=== PATIENT | female | born 1960 | race Caucasian/White ===

== ENCOUNTER → 2019-10-07 10:57 | Outpatient (CLI) | payer OTHER, SELFPAY ==
--- NOTE | ~2019-10-07 | MM_ITS ---
EXAMINATION: MM screening sarah BI w chris HISTORY: Screening mammogram TECHNIQUE: Craniocaudal and mediolateral oblique 3-D tomosynthesis images were obtained and synthetic 2-D images were generated. CAD analysis was submitted and interpreted. COMPARISON: 06/26/2017 bilateral diagnostic digital mammogram 06/12/2017 bilateral digital screening mammogram BREAST PARENCHYMAL COMPOSITION: There are scattered areas of fibroglandular density. FINDINGS: Stable benign-appearing intramammary lymph nodes, more numerous on the right. There is no e vidence of suspicious mass, calcification, or architectural distortion to suggest malignancy in eithe r breast. There has been no suspicious interval change. IMPRESSION: 1. No mammographic evidence of malignancy. 2. Recommend routine screening mammography in one year. BI-RADS Category 2: Benign finding(s). Reviewed, dictated and finalized at location A. 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
== END ==
PROVIDERS: PCP Family Medicine; Visit Provider Family Medicine
DX: Z12.31 Encounter for screening mammogram for malignant neoplasm of breast (principal)
CPT/HCPCS: 77063; 77067

== ENCOUNTER 2020-12-14 10:43 | Outpatient (CLI) | payer OTHER, SELFPAY ==
--- NOTE | ~2020-12-14 | XR_ITS ---
XR ankle LT 2V DATE: 12/14/2020 10:59 INDICATION: Left ankle and foot pain TECHNIQUE: AP and lateral views of left ankle COMPARISON: None FINDINGS: No fracture or dislocation of the ankle or disruption of the ankle mortise. Prominent plantar calcaneal enthesopathy. Osteoarthritic changes at the tarsal and tarsometatarsal joints. IMPRESSION: Plantar calcaneal enthesopathy Osteoarthritis at the tarsal and tarsometatarsal joints Reviewed, dictated and finalized at location A.
--- NOTE | ~2020-12-14 | XR_ITS ---
XR foot LT 2V DATE: 12/14/2020 10:59 INDICATION: Left foot pain across the metatarsal region TECHNIQUE: AP and lateral views COMPARISON: None FINDINGS: Prominent plantar calcaneal enthesopathy. Osteoarthritic changes at the tarsal and tarsometatarsal joints. Hallux valgus and bunion deformity. Osteoarthritis at the first metatarsophalangeal joint. IMPRESSION: Plantar calcaneal enthesopathy Polyarticular osteoarthritis Hallux valgus and bunion deformity Reviewed, dictated and finalized at location A.
== END 2020-12-14 10:44 | disposition home or self-care (01) ==
PROVIDERS: PCP Family Medicine; Visit Provider Physician Assistant
DX: M79.89 Other specified soft tissue disorders (principal); M25.472 Effusion, left ankle; M19.072 Primary osteoarthritis, left ankle and foot; M77.32 Calcaneal spur, left foot; M20.12 Hallux valgus (acquired), left foot
CPT/HCPCS: 73600; 73620

== ENCOUNTER 2021-02-01 16:09 | Outpatient (CLI) | payer OTHER, SELFPAY ==
--- NOTE | ~2021-02-01 | MM_ITS ---
EXAMINATION: MM screening [facility] BI w chris HISTORY: Screening TECHNIQUE: Craniocaudal and mediolateral oblique 3-D tomosynthesis images were obtained and synthetic 2-D images were generated. CAD analysis was submitted and interpreted. COMPARISON: Comparison to multiple prior studies sequentially, with oldest reviewed study dated 03/2017. BREAST PARENCHYMAL COMPOSITION: There are scattered areas of fibroglandular density. FINDINGS: There is no evidence of suspicious mass, calcification, or architectural distortion to sugg est malignancy in either breast. There has been no suspicious interval change. IMPRESSION: 1. No mammographic evidence of malignancy. 2. Recommend routine screening mammography in one year. BI-RADS Category 1: Negative Reviewed, dictated and finalized at location A.
== END 2021-02-01 16:10 | disposition home or self-care (01) ==
LOC: ANHIMG 16:10
PROVIDERS: PCP Family Medicine; Visit Provider Physician Assistant
DX: Z12.31 Encounter for screening mammogram for malignant neoplasm of breast (principal)
CPT/HCPCS: 77063; 77067

== ENCOUNTER → 2022-02-06 10:32 | Outpatient (CLI) | payer OTHER, SELFPAY ==
--- NOTE | ~2022-02-06 | MM_ITS ---
EXAMINATION: MM screening sarah BI w chris HISTORY: Screening TECHNIQUE: Craniocaudal and mediolateral oblique 3-D tomosynthesis images were obtained and synthetic 2-D images were generated. CAD analysis was submitted and interpreted. COMPARISON: Comparison to multiple prior studies sequentially, with oldest reviewed study dated 03/2017. BREAST PARENCHYMAL COMPOSITION: Breast composed of scattered areas of fibroglandular density. FINDINGS: Developing focal asymmetry in the upper outer quadrant of the right breast, best seen on ML O view. The left breast is stable without evidence for malignancy. IMPRESSION: 1. Developing right breast asymmetry. 2. Additional mammographic views and possible breast ultrasound are recommended. BI-RADS Category 0: Incomplete: Needs additional imaging evaluation. Reviewed, dictated and finalized at location A. IMPRESSION: 1. Developing right breast asymmetry. 2. Additional mammographic views and possible breast ultrasound are recommended . BI-RADS Category 0: Incomplete: Needs additional imaging evaluation.
== END ==
PROVIDERS: PCP Family Medicine; Visit Provider Family Medicine
DX: Z12.31 Encounter for screening mammogram for malignant neoplasm of breast (principal); R92.8 Other abnormal and inconclusive findings on diagnostic imaging of breast
CPT/HCPCS: 77063; 77067

== ENCOUNTER → 2022-02-21 08:06 | Outpatient (CLI) | payer OTHER, SELFPAY ==
--- NOTE | ~2022-02-21 | MMUS_ITS ---
EXAMINATION: MM diagnostic sarah RT w chris, US breast RT limited HISTORY: Follow-up right breast asymmetry TECHNIQUE: Additional 3-D tomosynthesis images of the right breast were performed and synthetic 2-D i mages were generated. CAD analysis was submitted and interpreted. High resolution Limited right breas t ultrasound was performed. COMPARISON: 02/06/2022 BREAST PARENCHYMAL COMPOSITION: Breast composed of scattered areas of fibroglandular density FINDINGS: MAMMOGRAPHIC FINDINGS: Persistent focal asymmetry in the mid outer aspect of the right breast. No suspicious calcifications or architectural distortion. ULTRASOUND: Limited right breast ultrasound: At 11:00, 7 cm from the nipple there is an oval hypoechoic 6 mm mass with low level internal echoes, no internal vascularity and no posterior features. At 10:00, 9 cm fr om the nipple, there is an oval circumscribed hypoechoic mass with parallel orientation, no significa nt posterior shadowing and no internal vascularity measuring 5 mm. IMPRESSION: 1. Probable benign right breast masses. 2. Recommend 6 month follow-up diagnostic right mammogram and ultrasound. BI-RADS category 3, probably benign findings. Reviewed, dictated and finalized at location L. IMPRESSION: 1. Probable benign right breast masses. 2. Recommend 6 month follow-up diagnostic right mammogram and ultrasound. BI-RADS category 3, probably benign findings.
== END ==
PROVIDERS: PCP Family Medicine; Visit Provider Family Medicine
DX: R92.8 Other abnormal and inconclusive findings on diagnostic imaging of breast (principal)
CPT/HCPCS: 76642; 77061; 77065; G0279

== ENCOUNTER 2022-08-31 19:13 | Emergency (ER) | payer OTHER, SELFPAY ==
--- NOTE | 2022-08-31 19:16 | ED.EXTPRO ---
HPI - Extremity Problem General Chief complaint: Extremity Problem,Nontraumatic Stated complaint: Pain and Bruising Lt Lower Leg Time Seen by Provider: 08/31/22 19:15 Source: patient Mode of arrival: ambulatory Limitations: no limitations History of Present Illness HPI Narrative: Frannie is a 62-year-old female patient presenting to the clinic today with complaints left lower leg bruising/swelling x 8 days. She reports she hit her fox on the corner of the car door. She is currently taking Brilinta and aspirin. States today she noticed some redness to her left lower leg and pain inferior of the bruising. She denies any fever, chills, chest pain, shortness of breath, headache, mental status changes, dizziness, or unsteady gait. Related Data Home Medications Medication Instructions Recorded Confirmed aspirin 81 mg tablet,delayed 81 mg PO DAILY 10/06/19 01/23/21 release (Aspir-) metoprolol succinate 50 mg 50 mg PO DAILY 10/06/19 01/23/21 tablet,extended release 24 hr ticagrelor 60 mg tablet (Brilinta) 60 mg PO Q12H 10/06/19 01/23/21 omega-3 fatty acids 1,000 mg 1,000 mg PO BID 10/03/20 01/23/21 capsule (Fish Oil Concentrate) diclofenac sodium 1 % topical gel 2 g topical QID 01/23/21 01/23/21 (Voltaren Arthritis Pain) Allergies Allergy/AdvReac Type Severity Reaction Status Date / Time No Known Allergies Allergy Verified 08/31/22 19:17 Review of Systems Review of Systems: Pertinent positives per HPI. Patient denies any fever, chills, rash, headache, visual changes, dizziness, cough, runny nose, sore throat, shortness of breath, chest pain, palpitations, nausea, vomiting, diarrhea, constipation, abdominal pain, or any urinary issues. [facility] Past Medical History Medical History Benign essential HTN CAD (coronary artery disease) CHF (congestive heart failure) GERD (gastroesophageal reflux disease) Hx of myocardial infarction Mixed hyperlipidemia Obesity DORY (obstructive sleep apnea) Family History Family History Mother Hypertension Family history of cardiovascular disease Cerebrovascular accident Father Malignant neoplasm of prostate Social History Social History Social History: Second hand tobacco smoke exposure: No Alcohol intake: never Substance use: never Substance use type: does not use Living arrangements: with family Occupation/Education: retired Gender identity (if verbalized by the patient): Female Comments At the time of my signature, I reviewed and agree with the nursing past medical, surgical, social, and family history. There is no relevant family history pertinent to the patient complaint. Exam Narrative: General: Well-developed, obese, in no apparent distress Head: Normocephalic, atraumatic. Cardio: Regular rate and rhythm, s1 and s2 normal, no murmur appreciated. Resp: Clear to auscultation bilaterally, no rhonchi, rales, wheezing or rubs. Musculoskeletal: No deformity, bruising noted to the left lower anterior fox, 4 x 3 cm hematoma palpable superficially to left anterior fox with surrounding ecchymosis 7 x 6 cm, localized tenderness to palpation just inferior/lateral from the hematoma, grossly normal range of motion, muscle strength strong and equal, peripheral pulse strong, 1+ edema bilaterally to lower extremities, lower extremity temperature is equal bilaterally, no cyanosis, normal gait and station Course Course Emergency Course: Portions of this record may have been created with voice recognition software. Level of Care: Express Care Visit Vital Signs Vital signs: Vital signs reviewed MDM - Extremity (Nontraumatic) MDM Narrative Medical decision making narrative: At the time of visit patient is resting comfortably on the exam table. I suspect the patient
[2022-08-31 19:23] VITALS: BP 125/56; PULSE 71; RESP 18; TEMP 36.2; O2SAT 99
== END 2022-08-31 19:38 | disposition home or self-care (01) ==
PROVIDERS: Emergency Provider Nurse Practitioner Family; PCP Family Medicine
DX: S80.12XA Contusion of left lower leg, initial encounter (principal); W22.8XXA Striking against or struck by other objects, initial encounter; I11.0 Hypertensive heart disease with heart failure; I50.9 Heart failure, unspecified; I25.10 Atherosclerotic heart disease of native coronary artery without angina pectoris; K21.9 Gastro-esophageal reflux disease without esophagitis; I25.2 Old myocardial infarction; E78.2 Mixed hyperlipidemia; E66.9 Obesity, unspecified; Z68.42 Body mass index [BMI] 45.0-49.9, adult; Z79.82 Long term (current) use of aspirin
CPT/HCPCS: 99212; G0463

== ENCOUNTER 2022-10-15 08:31 | Outpatient (CLI) | payer OTHER, SELFPAY ==
--- NOTE | ~2022-10-15 | MMUS_ITS ---
EXAMINATION: MM diagnostic sarah RT w chris, US breast RT limited HISTORY: Six-month follow-up of probable benign right breast masses at 11:00 7 cm from nipple and 10: 00 9 cm from nipple TECHNIQUE: ML, MLO and CC 3-D tomosynthesis images of the right breast were performed and synthetic 2 -D images were generated. CAD analysis was submitted and interpreted. High resolution upper outer galileo drant and lower outer quadrant right breast ultrasound was performed. COMPARISON: 02/21/2022 diagnostic right mammogram and limited right breast ultrasound 02/06/2022 bilateral screening mammogram BREAST PARENCHYMAL COMPOSITION: There are scattered areas of fibroglandular density. FINDINGS: MAMMOGRAPHIC FINDINGS: Stable benign-appearing axillary tail lymph nodes are noted. Circumscribed 4.9 mm low-density opacity is noted in the upper outer right breast (MLO Tomosynthesis image 22/82). No suspicious mass or architectural distortion, malignant calcification, skin thickening or retractio n of the right breast is detected. ULTRASOUND: 11:00 7 cm from nipple: Reniform 6.5 x 8.9 x 6 mm circumscribed hypoechoic lesion with fatty hilus wi th vascularity, likely a benign intramammary lymph node. 11:00 5 cm from nipple: Approximately 2 x 3 mm circumscribed hypoechoic area without suspicious shado wing 10:00 9 cm from nipple: 4.2 x 3.7 mm circular sonolucency with through transmission, consistent with small cyst IMPRESSION: 1. Probably benign findings 2. 6 month follow-up diagnostic right mammogram and right breast ultrasound with routine 12 month scr eening interval left mammogram views is recommended. BI-RADS category 3, probably benign findings. Reviewed, dictated and finalized at location A. IMPRESSION: 1. Probably benign findings 2. 6 month follow-up diagnostic right mammogram and right breast ultrasound wit h routine 12 month screening interval left mammogram views is recommended. BI-RADS category 3, probably benign findings.
== END 2022-10-15 08:32 ==
LOC: MICIMG 08:32
PROVIDERS: PCP Family Medicine; Visit Provider Family Medicine
DX: R92.8 Other abnormal and inconclusive findings on diagnostic imaging of breast (principal)
CPT/HCPCS: 76642; 77061; 77065; G0279

== ENCOUNTER 2022-11-26 00:40 | Day surgery (SDC) | payer OTHER, SELFPAY ==
[2022-11-16 14:57] VITALS: BMI 44.3
--- NOTE | 2022-11-21 11:16 | PC.NURSE ---
pt is scheduled for colonoscopy on november 26, 2022. she is currently taking brilinta, dr gage cleared pt for procedure but only wants pt to hold her brilinta for 2 days prior instead of 3. spoke with dr barnett and he is agreeable to this. called pt and instructed her to hold for 2 days prior, last dose will be november 23, continue aspirin. pt voiced understanding.
--- NOTE | 2022-11-26 08:22 | WPDANESEPPF ---
Anes - Initial Pre Proc Eval Procedure: Operation Date: 11/26/22 13:30 Proposed Procedures p Colonoscopy - Jose Guillen MD Date/Time: 11/26/22 08:22 Surgeon: Jose Guillen MD Pre Op Diagnosis: Other fecal abnormalities Patient Data Age: 62 Gender: F Height: 1.6 m Weight: 113.5 kg Allergies Allergy/AdvReac Type Severity Reaction Status Date / Time No Known Allergies Allergy Verified 11/26/22 12:04 Home Medications Medication Instructions Recorded Confirmed Type aspirin 81 mg tablet,delayed 81 mg PO DAILY 10/06/19 11/16/22 History release (Aspir-) metoprolol succinate 50 mg 50 mg PO DAILY 10/06/19 11/26/22 History tablet,extended release 24 hr ticagrelor 60 mg tablet (Brilinta) 60 mg PO Q12H 10/06/19 11/16/22 History allopurinol 100 mg tablet 100 mg PO DAILY #90 tabs 04/20/21 11/16/22 Rx lisinopril 20 mg tablet 20 mg PO DAILY 11/16/22 11/16/22 History nystatin 100,000 unit/gram topical 1 applic topical BID PRN Rash 11/16/22 11/16/22 History cream omega 5-dnm-bqo-fish oil 1,200 mg 1,200 cap PO BID 11/16/22 11/16/22 History (144 mg-216 mg) capsule (Fish Oil) rosuvastatin 20 mg tablet 20 mg PO DAILY 11/16/22 11/16/22 History triamcinolone acetonide 0.1 % 1 applic topical BID PRN Rash 11/16/22 11/16/22 History topical cream Patient hx anesthesia problems: none Family hx anesthesia problems: none Results Review: All pre-operative results and documents have been reviewed as part of the pre-operative evaluation. [facility], [facility] Past Medical History Medical History (Updated 11/26/22 @ 08:23 by Kerwin Cervantes DO) Benign essential HTN CAD (coronary artery disease) CHF (congestive heart failure) GERD (gastroesophageal reflux disease) Hx of myocardial infarction Mixed hyperlipidemia Obesity DORY (obstructive sleep apnea) CPAP Family History Family History Mother Hypertension Family history of cardiovascular disease Cerebrovascular accident Father Malignant neoplasm of prostate Social History Social History Social History: Smoking status: Never smoker Second hand tobacco smoke exposure: No Alcohol intake: never Substance use: never Substance use type: does not use Living arrangements: with family Occupation/Education: retired Gender identity (if verbalized by the patient): Female Spiritual care concerns: No Anes - Eval Final PreProcedure Day of Procedure 11/26/22 08:22 Patient weight: morbidly obese Heart: regular rate and rhythm Lungs: clear to auscultation Airway: Mallampati scale class II Neurological: alert and oriented Last oral intake: >/= 8 hours ASA classification: III Emergent: no Anesthetic plan: proceed Anesthesia type and monitoring: general GIVS and standard monitoring Results Review: All pre-operative results and documents have been reviewed as part of the pre-operative evaluation. Informed Consent: The patient's anesthetic plan and its attendant risks and benefits were discussed with the patient/family/POA. Questions were solicited and answers provided to the satisfaction of the patient/family/POA.
[2022-11-26 12:05] VITALS: BP 121/64; PULSE 68; RESP 20; TEMP 35.8; O2SAT 98
[2022-11-26] MEDS: LACTATED RINGERS 1,000 ML 150 ML IV CONT (12:16)
--- NOTE | 2022-11-26 12:43 | PM.HPGS ---
History of Present Illness History of Present Illness Consent: Risks, benefits, and alternatives have been discussed and questions answered. Patient agrees to proceed with procedure. Chief complaint: Other fecal abnormalities Narrative: Frannie Hennessy is a 62 year old female here for first colonoscopy, had cologuard + Review of Systems Constitutional: Constitutional: Denies headache(s) and Denies weakness Eyes: Eyes: Denies blurry vision ENT: Reports Normal hearing present, Denies headache(s) and Denies neck pain Cardiovascular: Cardiovascular: Denies chest pain and Denies dyspnea Respiratory: Respiratory: Denies dyspnea Gastrointestinal: Gastrointestinal: Reports no additional gastrointestinal complaints Genitourinary: Genitourinary: Denies dysuria Musculoskeletal: Musculoskeletal: Denies neck pain Integumentary/Breasts: Skin/Breast: Denies dry skin Neurologic: Reports Normal hearing present, Denies headache(s) and Denies weakness Psychiatric: Psychiatric: Denies anxiety Endocrine: Endocrine: Denies change in body appearance Hematologic/Lymphatic: Hematologic/Lymphatic: Denies easy bleeding Allergic/Immunologic: Allergic/Immunologic: Denies urticaria PMFSH Past Medical History Medical History (Updated 11/26/22 @ 12:43 by Jose Guillen MD) Benign essential HTN CAD (coronary artery disease) CHF (congestive heart failure) GERD (gastroesophageal reflux disease) Hx of myocardial infarction Mixed hyperlipidemia Obesity DORY (obstructive sleep apnea) CPAP Positive colorectal cancer screening using Cologuard test Family History Family History Mother Hypertension Family history of cardiovascular disease Cerebrovascular accident Father Malignant neoplasm of prostate Social History Social History Social History: Smoking status: Never smoker Second hand tobacco smoke exposure: No Alcohol intake: never Substance use: never Substance use type: does not use Living arrangements: with family Occupation/Education: retired Gender identity (if verbalized by the patient): Female Spiritual care concerns: No Meds Home Medications and Allergies Home Medications Medication Instructions Recorded Confirmed Type aspirin 81 mg tablet,delayed 81 mg PO DAILY 10/06/19 11/16/22 History release (Aspir-) metoprolol succinate 50 mg 50 mg PO DAILY 10/06/19 11/26/22 History tablet,extended release 24 hr ticagrelor 60 mg tablet (Brilinta) 60 mg PO Q12H 10/06/19 11/16/22 History allopurinol 100 mg tablet 100 mg PO DAILY #90 tabs 04/20/21 11/16/22 Rx lisinopril 20 mg tablet 20 mg PO DAILY 11/16/22 11/16/22 History nystatin 100,000 unit/gram topical 1 applic topical BID PRN Rash 11/16/22 11/16/22 History cream omega 5-qcs-mey-fish oil 1,200 mg 1,200 cap PO BID 11/16/22 11/16/22 History (144 mg-216 mg) capsule (Fish Oil) rosuvastatin 20 mg tablet 20 mg PO DAILY 11/16/22 11/16/22 History triamcinolone acetonide 0.1 % 1 applic topical BID PRN Rash 11/16/22 11/16/22 History topical cream Allergies Allergy/AdvReac Type Severity Reaction Status Date / Time No Known Allergies Allergy Verified 11/26/22 12:04 Vital Signs Vital Signs - 24 hr 11/26/22 12:05 Temperature 96.5 F L Pulse Rate 68 Respiratory Rate 20 Blood Pressure 121/64 Pulse Oximetry 98 Oxygen Delivery Room Air Exam Const: General: comfortable and no acute distress HENMT: Face/Nose/Sinus: Normal nares present Eyes: General: appearance normal, both eyes and all related structures Neck: Neck: no JVD Resp: Auscultation: clear to auscultation bilaterally Cardio: Rate: regular rate Rhythm: regular rhythm GI: Inspection: non-distended GI Palp: Yes Soft to palpation Skin: General skin exam: normal color Neuro: General: gait normal Speech: bro
[2022-11-26 13:10] VITALS: BP 84/57; PULSE 73; RESP 16; O2SAT 97
[2022-11-26 13:20] VITALS: BP 96/63; PULSE 65; RESP 18; O2SAT 98
[2022-11-26 13:30] VITALS: BP 96/65; PULSE 62; RESP 17; O2SAT 98
== END 2022-11-26 13:45 | disposition home or self-care (01) ==
PROVIDERS: PCP Family Medicine; Visit Provider Internal Medicine Gastroenterology
PROC: 0DJD8ZZ Inspection of Lower Intestinal Tract, Via Natural or Artificial Opening Endoscopic (ICD-10-PCS; CPT 45378; principal; 2022-11-26 13:30)
DX: R19.7 Diarrhea, unspecified (principal); D12.0 Benign neoplasm of cecum; D12.2 Benign neoplasm of ascending colon; D12.3 Benign neoplasm of transverse colon; K57.30 Diverticulosis of large intestine without perforation or abscess without bleeding; K64.8 Other hemorrhoids; I11.0 Hypertensive heart disease with heart failure; I50.9 Heart failure, unspecified; I25.10 Atherosclerotic heart disease of native coronary artery without angina pectoris; I25.2 Old myocardial infarction; E78.2 Mixed hyperlipidemia; K21.9 Gastro-esophageal reflux disease without esophagitis; G47.33 Obstructive sleep apnea (adult) (pediatric); E66.01 Morbid (severe) obesity due to excess calories; Z68.41 Body mass index [BMI] 40.0-44.9, adult; Z79.82 Long term (current) use of aspirin; Z79.01 Long term (current) use of anticoagulants
CPT/HCPCS: 45380; 45385; 88305; J2704; J7120

== ENCOUNTER → 2023-06-12 08:43 | Outpatient (CLI) | payer MEDICARE, OTHER, SELFPAY ==
--- NOTE | ~2023-06-12 | MMUS_ITS ---
EXAMINATION: MM diagnostic [facility] BI w chris, US breast RT limited HISTORY: Follow-up right breast masses TECHNIQUE: Additional 3-D tomosynthesis images of the breasts were performed and synthetic 2-D images were generated. CAD analysis was submitted and interpreted. High resolution Limited right breast ult rasound was performed. COMPARISON: Comparison to multiple prior studies sequentially, with oldest reviewed study dated 06/26/2017. BREAST PARENCHYMAL COMPOSITION: Breast composed of scattered areas of fibroglandular density FINDINGS: MAMMOGRAPHIC FINDINGS: The breasts are stable. No new masses, calcifications or architectural distortion are identified in e ither breast to suggest malignancy. ULTRASOUND: Limited right breast ultrasound: At 11:00, 7 cm from the nipple there is an oval hypoechoic mass shabana uring 8 x 3 x 4 mm with low-level internal echoes, parallel orientation, no significant posterior fea tures or internal vascularity. This is likely benign. At 11:00, 5 cm from the nipple there is a small 3 mm cyst. IMPRESSION: 1. Probable benign left breast mass at 11:00, 7 cm from the nipple. 2. Given one year of interval stability, recommend 12 month followup bilateral mammogram and Limited right breast ultrasound BI-RADS category 3, probably benign findings. 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 Probable benign left breast mass at 11:00, 7 cm from the nipple. 2. Given one year of interval stability, recommend 12 month followup bilateral mammogram and Limited right breast ultrasound BI-RADS category 3, probably benign findings.
== END ==
PROVIDERS: PCP Family Medicine; Visit Provider Family Medicine
DX: N63.22 Unspecified lump in the left breast, upper inner quadrant (principal)
CPT/HCPCS: 76642; 77062; 77066; G0279

== ENCOUNTER 2024-12-18 12:05 | Outpatient (CLI) | payer MEDICARE, OTHER, SELFPAY ==
--- NOTE | ~2024-12-18 | MM_ITS ---
EXAMINATION: MM screening sarah BI w chris HISTORY: Screening TECHNIQUE: Craniocaudal and mediolateral oblique 3-D tomosynthesis images were obtained and synthetic 2-D images were generated. CAD analysis was submitted and interpreted. COMPARISON: Comparison to multiple prior studies sequentially, with oldest reviewed study dated 11/2019. BREAST PARENCHYMAL COMPOSITION: Not dense: There are scattered areas of fibroglandular density. FINDINGS: There is no evidence of suspicious mass, calcification, or architectural distortion to sugg est malignancy in either breast. There has been no suspicious interval change. IMPRESSION: 1. No mammographic evidence of malignancy. 2. Recommend routine screening mammography in one year. BI-RADS Category 1: Negative Reviewed, dictated and finalized at location B.
== END 2024-12-18 12:06 | disposition home or self-care (01) ==
LOC: MICIMG 12-19 12:05
PROVIDERS: PCP Family Medicine; Visit Provider Student in an Organized Health Care Education/Training Program
DX: Z12.31 Encounter for screening mammogram for malignant neoplasm of breast (principal)
CPT/HCPCS: 77063; 77067

== ENCOUNTER 2025-03-13 10:40 | Emergency (ER) | payer MEDICARE, OTHER, SELFPAY ==
--- OUTSIDE RECORDS SUMMARY | 2025-03-13 10:42 | XMS_ITS | Encounter Summary ---
Author Organization [facility] Address [address] [place] [id number] Care Team Providers Care In Service Education Teacher Name Role Phone Dorita Zhong MD Primary Care Provider + Reason for Visit * Reason Comments Lab (SCAN) Encounter Details Date Type Department Care Team (Latest Contact Info) Description 12/21/2024 Scan HEALTH INFO [facility] Scanned, Doc [facility] Lab (SCAN) Social History Tobacco Use Types Packs/Day Years Used Date Smoking Tobacco: Never Passive Smoke Exposure: Never Smokeless Tobacco: Never Alcohol Use Standard Drinks/Week Comments Never 0 (1 standard drink = 0.6 oz pur e alcohol) PHQ-2 Answer Date Recorded Patient Health Questionnaire-2 Score 0 12/15/2024 Comments No Sex and Gender Information Value Date Recorded Sex Assigned at Female 12/02/2024 2:33 PM CDT Legal Sex Female 7:05 PM CDT Gender Identity Female 12/02/2024 2:33 PM CDT Sexual Orientation Straight 12/02/2024 2: 33 PM CDT documented as of this encounter Plan of Treatment Upcoming Encounters Date Type Department Care Team ( Contact Info) Description 07/09/2025 9: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 Office Visit [facility] Family Medicine - [place] [address] [facility] [address] [place] [address] [phone] Dorita Zhong MD [address] [place] [address] [phone] 08/10/2025 10: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 Office Visit [facility] Medical [facility] Family Medicine [facility] [address] [facility] [address] [place] [address] [phone] Dorita Zhong MD [address] [place] [address] [phone] documented as of this encounter Procedures Procedure Name Priority Date/Time Associated Diagnosis Comments OUTSIDE LAB (SCAN ORDER) 12/21/2024 documented in this encounter Results * OUTSIDE LAB (SCAN ORDER) (12/21/2024) 12/21/2024 us Doc [facility] Scanned SCANNING Final Resu lt documented in this encounter Visit Diagnoses Not on filedocumented in this encounter Care Teams In Service Education Teacher Relationship Specialty Start Date End Date Dorita Zhong MD [address] [place] [phone] PCP - General FAMILY PRACTICE 07/09/24 documented as of this encounter
--- OUTSIDE RECORDS SUMMARY | 2025-03-13 10:42 | XMS_ITS | Clinical Summary ---
Author Organization [facility] Address [address] [place] [address] Care Team Providers Care Third Helper Name Role Phone Dorita Zhong MD Primary Care Provider Allergies No known active allergies Medications allopurinoL (ZYLOPRIM) 100 mg tablet 3 Active lisinopriL (PRINIVIL,ZESTRIL ) 20 mg tablet 3 Active metoprolol XL (TOPROL-XL) 50 mg extended release tablet 3 Active rosuvastatin (CRESTOR) 20 mg tablet 3 Active triamcinolone (KENALOG) 0.1 % cream 3 Active nystatin cream 3 Active aspirin 81 mg enteric coated tabletIndications :Myocardial Reinfarction Prevention Take 1 tablet (81 mg total) by mouth daily Active omega-3 fatty acids-fish oil 300-1,000 mg capsule Take 2 capsules (2 g total) by mouth daily Active clopidogreL (PLAVIX) 75 mg tabletIndications :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,Dyslipid emia,Essential hypertension,Old NH (myocardial infarction) Take 1 tablet (75 mg total) by mouth daily 90 tablet 3 5 Active Active Problems Problem Noted Date Diagnosed Date Coronary artery disease invo lving squaxin coronary 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 05/31/2023 Old NH (myocardial infarction) 05/31/2023 Essential hypertension 05/31/2023 Dyslipidemia 05/31/2023 Class 3 severe obesity with body mass index (BMI) of 45.0 to 49.9 in adult 05/31/2023 Obstructive sleep apnea 05/31/2023 Vitamin D deficiency 05/27/2023 Mouth swelling 04/12/2023 Eczema 01/10/2023 Keratosis pilaris 01/10/2023 Positive colorectal cancer s creening using DNA-based stool test 10/16/2022 Abnormal finding on mammography 10/15/2022 Gout 11/23/2021 Hyperlipidemia 11/23/2021 Obstructive sleep apnea syndrome 11/23/2021 Overview (12/04/2023): cpap Myocardial infarction 11/23/2021 Overview (12/04/2023): 2017 Encounters Date Type Department Care Team Description 02/09/2025 8:08 AM CDT - 02/09/2025 11:59 PM CDT Hospital Encounter [facility] OP Cardiac Testing [address] [place] [id number] 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; Dyslipidemia; Essential hypertension; Mixed hyperlipidemia; Myocardial infarction, unspecified NH type, unspecified artery (HCC); Old NH (myocardial infarction); Class 3 severe obesity with body mass index (BMI) of 45.0 to 49.9 in adult; Obstructive sleep apnea syndrome Discharge Disposition: Discharge to home or self care 01/06/2025 10:30 AM CDT Office Visit [facility] [address] [place] [phone] Elida Vargas MD 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 (Primary Dx); Dyslipidemia; Essential hypertension; Mixed hyperlipidemia; Myocardial infarction, unspecified NH type, unspecified artery (HCC); Old NH (myocardial infarction); Class 3 severe obesity with body mass index (BMI) of 45.0 to 49.9 in adult; Obstructive sleep apnea syndrome from Last 3 Months Medical History Medical History Date Comments Hyperlipidemia Hypertension Coronary artery disease STEMI (ST elevation myocardial infarction) (HCC) Social History Tobacco Use Types Packs/Day Years Used Date Smoking Tobacco: Never Smokeless Tobacco: Never Tobacco Cessation:Counseling Given: Not Answered Comments No Sex and Gender Information Value Date Recorded Sex Assigned at Not on file Legal Sex Female 9:49 AM CDT Gender Identity Not on file Sexual Orientation Not on file Obstetrics History Last Filed Vital Signs Vital Sign Reading Time Taken Comments Blood Pressure 128/80 01/06/2025 10:48 AM CDT Pulse 68 01/06/2025 10:48 AM CDT Temperature - - Respiratory Rate 18 01/06/2025 10:48 AM CDT Oxygen Saturation 97% 01/06/2025 10:48 AM CDT Inhaled Oxygen Concentration - - Weight 117.9 kg (260 lb) 01/06/2025 10:48 AM CDT Height 157.5 cm (5' 2) 01/06/2025 10:48 AM CDT Body Mass Index 47.55 01/06/2025 10:48 AM CDT Plan of Treatment Health Maintenance Due Date Last Done Comments Colon Cancer Screening-Colonoscopy 1960 Depression Screening 1960 Fall Risk Assessment 1960 Hepatitis C Screening 1960 DTaP/Tdap/Td Vaccine (1 - Tdap) 1969 Hepatitis B Screening 1976 Pneumococcal vaccine 65+ (1 of 1 - PCV) 2008 Zoster Vaccine (1 of 2) 2008 Well Visit 65+ 2023 Covid-19 Vaccine (5 - 2023-2 5 season) 2024 06/11/2022, 06/09/2021, 10/29/2020, Additional history exists Influenza Vaccine (#1) 2025 Breast Cancer Screening-Mammogram 12/18/2025 12/18/2024, 12/18/2024, 02/08/2022 Osteoporosis Screening-Bone Density Scan 07/16/2026 07/16/2024 Procedures Procedure Name Priority Date/Time Associated Diagnosis Comments TRANSTHORACIC ECHO (TTE) COMPLETE W DOPPLER/CF WO CONTRAST Routine 02/09/2025 9:07 AM CDT 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 Dyslipidemia Essential hypertension Mixed hyperlipidemia Myocardial infarction, unspecified NH type, unspecified artery (HCC) Old NH (myocardial infarction) Class 3 severe obesity with body mass index (BMI) of 45.0 to 49.9 in adult Obstructive sleep apnea syndrome ECG 12-LEAD Routine 01/06/2025 10:51 AM CDT 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 Dyslipidemia Essential hypertension Mixed hyperlipidemia Myocardial infarction, unspecified NH type, unspecified artery (HCC) Old NH (myocardial infarction) THYROID FUNCTION CASCADE Routine 12/31/2024 8:20 AM CDT 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 Old NH (myocardial infarction) Essential hypertension Mixed hyperlipidemia Myocardial infarction, unspecified NH type, unspecified artery (HCC) Class 3 severe obesity due to excess calories with serious comorbidity and body mass index (BMI) of 45.0 to 49.9 in adult Obstructive sleep apnea MAGNESIUM Routine 12/31/2024 8:20 AM CDT 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 Old NH (myocardial infarction) Essential hypertension Mixed hyperlipidemia Myocardial infarction, unspecified NH type, unspecified artery (HCC) Class 3 severe obesity due to excess calories with serious comorbidity and body mass index (BMI) of 45.0 to 49.9 in adult Obstructive sleep apnea LIPID PANEL Routine 12/31/2024 8:20 AM CDT 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 Old NH (myocardial infarction) Essential hypertension Mixed hyperlipidemia Myocardial infarction, unspecified NH type, unspecified artery (HCC) Class 3 severe obesity due to excess calories with serious comorbidity and body mass index (BMI) of 45.0 to 49.9 in adult Obstructive sleep apnea COMPREHENSIVE METABOLIC PANEL Routine 12/31/2024 8:20 AM CDT 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 Old NH (myocardial infarction) Essential hypertension Mixed hyperlipidemia Myocardial infarction, unspecified NH type, unspecified artery (HCC) Class 3 severe obesity due to excess calories with serious comorbidity and body mass index (BMI) of 45.0 to 49.9 in adult Obstructive sleep apnea CBC WITH AUTO DIFFERENTIAL Routine 12/31/2024 8:20 AM CDT 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 Old NH (myocardial infarction) Essential hypertension Mixed hyperlipidemia Myocardial infarction, unspecified NH type, unspecified artery (HCC) Class 3 severe obesity due to excess calories with serious comorbidity and body mass index (BMI) of 45.0 to 49.9 in adult Obstructive sleep apnea from Last 3 Months Results * TRANSTHORACIC ECHO (TTE) COMPLETE W DOPPLER/CF WO CONTRAST (02/09/2025 9:07 AM CDT) Estimated EF 60-65 % CONS SCIMAGE EF Mod BP 76 % CONS SCIMAGE Anatomical Region Laterality Modality Ultrasound 02/09/2025 8:28 AM CDT Narrative 02/10/2025 4:35 PM CDT Transthoracic Echocardiographic Report Patient Name: FRANNIE HENNESSY : 1960 (64y 8m) Gender: F Study Date: 02/09/2025 08:28:38 AM Ht(Inch): 62 Wt(Lb): 260.01 BSA: 2.27 Loan Adviser: Kristie Winters STACEY Order Provider: ELIDA VARGAS Heart Rate: 68 BMI: 47.55 BP: 128 / 80 Ref Provider: ELIDA VARGAS PROCEDURES: Echocardiographic Report: ([id number]) Transthoracic complete echo, 2D, spectral and tissue Doppler, color flow Doppler, M-mode. INDICATIONS: I25.10 Atherosclerotic heart disease of squaxin coronary artery without angina pectoris, E78.5 Hyperlipidemia, unspecified, I10 Essential (primary) hypertension, E78.2 Mixed hyperlipidemia, I21.9 Acute myocardial infarction, unspecified, I25.2 Old myocardial infarction, E66.813 Obesity, class 3, Z68.42 Body mass index (BMI) 45.0-49.9, adult, and G47.33 Obstructive sleep apnea (adult) (pediatric). FINDINGS: Left Ventricle: Normal left ventricular cavity size. Normal Left ventricular wall thickness. Normal left ventricular systolic function. The Ejection Fraction is visually estimated to be 60-65 %. Diastolic Function E to E' ratio is 8-15 which is in the indeterminate zone and left ventricular diastolic parameters are consistent with Grade I diastolic dysfunction (normal LA pressure). Right Ventricle: Normal right ventricular size. Normal right ventricular systolic function. Left Atrium: Mildly dilated left atrium. Right Atrium: The right atrium is normal in size. Atrial Septum: No shunt by color Doppler. Mitral Valve: Normal mitral valve leaflet structure. Mild mitral annular calcification. There is trace mitral valve regurgitation. No mitral valve stenosis. Aortic Valve: Trileaflet aortic valve. No aortic regurgitation seen. No aortic valve stenosis. The aortic valve area by the continuity equation (using Peak Jacobo) is 2.4 cm2. Tricuspid Valve: The tricuspid valve demonstrates normal leaflet structure. There is trace to mild tricuspid valve regurgitation. The estimated right ventricular systolic pressure is 33 mmHg. Normal estimated pulmonary artery systolic pressure. No tricuspid valve stenosis. Pulmonic Valve: Pulmonic Valve not well visualized due to poor echo windows. There is trace to mild pulmonic valve regurgitation. No stenosis present. Pericardium: No pericardial effusion noted. Aorta: Normal aortic root. The aortic Sinus is normal in size. IVC: IVC is normal in size. IVC Collapses normally with inspiration. The estimated RA pressure is 3 mmHg. CONCLUSIONS: 1. Normal left ventricular cavity size. Normal Left ventricular wall thickness. Normal left ventricular systolic function. The Ejection Fraction is visually estimated to be 60-65 %. Diastolic Function E to E' ratio is 8-15 which is in the indeterminate zone and left ventricular diastolic parameters are consistent with Grade I diastolic dysfunction (normal LA pressure). 2. Compared to echo 09/18/2021, no significant change. MEASUREMENTS: 2D/MM Value Range Doppler Value LVIDd 2D 4.06 cm [ 3.50 - 5.70 ] AV Peak Jacobo 1.36 m/s LVIDs 2D 2.55 cm [ 3.10 - 4.60 ] AV Peak PG 7.40 mmHg IVSd 2D 0.82 cm [ 0.60 - 1.20 ] LVOT Peak Jacobo 1.04 m/s LVPWd 2D 0.80 cm [ 0.60 - 1.10 ] LVOT Peak PG 4.33 mmHg LV Thickness Ratio 1.02 LVOT Diam 2.00 cm LV Mass 2D 99.53 g DEEPTHI Vmax 2.40 cm2 LV Mass Index 2D 43.85 g/m2 MV E Peak Jacobo 1.06 m/s RWT 0.39 MV A Peak Jacobo 1.22 m/s EDV Mod BP 58.70 ml [ 46.00 - 106.00 ] MV E/A 0.90 ratio LV EDV Index 25.86 ml/m2 MV Decel Time 357.00 msec ESV Mod BP 14.30 ml [ 14.00 - 42.00 ] Med E` Jacobo 0.08 m/s EF Mod BP 76 % [ 54 - 74 ] Lat E` Jacobo 0.07 m/s Visually Estimated EF 60-65 % Average E/E` 1413.33 LA Dimension 2D 4.30 cm [ 1.90 - 4.00 ] TV Peak Jacobo 0.79 m/s LA Length 2C 5.52 cm TV Peak PG 2.50 mmHg LA Length 4C 5.87 cm RV S` 15.90 cm/sec LA Volume BP 81.40 ml TR Peak Jacobo 2.72 m/s LA Volume Index 35.86 ml/m2 [ 16.00 - 34.00 ] TR Peak PG 29.6 mmHg AoR Diam 2D 3.20 cm [ 2.00 - 3.70 ] RA Pressure 3.00 mmHg Ao Root Index 1.41 cm/m2 [ 1.00 - 2.00 ] RVSP 32.60 mmHg Asc Ao Diam 2D 3.50 cm PV Peak Jacobo 0.95 m/s Asc Ao Index 1.54 cm/m2 PV Peak PG 3.61 mmHg - ATTESTATION: I have reviewed and interpreted the pertinent images and measurements of this study. I attest to the conclusions in the final report that is provided above. DISCLAIMER: The study images and the final report will be retained in the patient chart by the [facility] for the legally required time period. This chart constitutes the legal record of any testing performed. Electronically Signed By: Elida Vargas MD 02/10/2025 4:34:55 PM CDT Procedure Note Elida Vargas MD - 02/10/2025 Transthoracic Echocardiographic Report Patient Name: FRANNIE HENNESSY : 1960 (64y 8m) Gender: F Study Date: 02/09/2025 08:28:38 AM Ht(Inch): 62 Wt(Lb): 260.01 BSA: 2.27 Loan Adviser: Kristie Winters RDCS Order Provider: ELIDA VARGAS Heart Rate: 68 BMI: 47.55 BP: 128 / 80 Ref Provider: ELIDA VARGAS PROCEDURES: Echocardiographic Report: ([id number]) Transthoracic complete echo, 2D,spectral and tissue Doppler, color flow Doppler, M-mode. INDICATIONS: I25.10 Atherosclerotic heart disease of squaxin coronary artery withoutangina pectoris, E78.5 Hyperlipidemia, unspecified, I10 Essential (primary) hypertension,E78.2 Mixed hyperlipidemia, I21.9 Acute myocardial infarction, unspecified, I25.2 Oldmyocardial infarction, E66.813 Obesity, class 3, Z68.42 Body mass index (BMI)45.0-49.9, adult, and G47.33 Obstructive sleep apnea (adult) (pediatric). FINDINGS: Left Ventricle: Normal left ventricular cavity size. Normal Leftventricular wall thickness. Normal left ventricular systolic function. The EjectionFraction is visually estimated to be 60-65 %. Diastolic Function E to E' ratio is 8-15 which isin the indeterminate zone and left ventricular diastolic parameters areconsistent with Grade I diastolic dysfunction (normal LA pressure). Right Ventricle: Normal right ventricular size. Normal right ventricularsystolic function. Left Atrium: Mildly dilated left atrium. Right Atrium: The right atrium is normal in size. Atrial Septum: No shunt by color Doppler. Mitral Valve: Normal mitral valve leaflet structure. Mild mitral annularcalcification. There is trace mitral valve regurgitation. No mitral valve stenosis. Aortic Valve: Trileaflet aortic valve. No aortic regurgitation seen. Noaortic valve stenosis. The aortic valve area by the continuity equation (using PeakVel) is 2.4 cm2. Tricuspid Valve: The tricuspid valve demonstrates normal leafletstructure. There is trace to mild tricuspid valve regurgitation. The estimated rightventricular systolic pressure is 33 mmHg. Normal estimated pulmonary artery systolic pressure.No tricuspid valve stenosis. Pulmonic Valve: Pulmonic Valve not well visualized due to poor echowindows. There is trace to mild pulmonic valve regurgitation. No stenosis present. Pericardium: No pericardial effusion noted. Aorta: Normal aortic root. The aortic Sinus is normal in size. IVC: IVC is normal in size. IVC Collapses normally with inspiration. Theestimated RA pressure is 3 mmHg. CONCLUSIONS: 1. Normal left ventricular cavity size. Normal Left ventricular wallthickness. Normal left ventricular systolic function. The Ejection Fraction is visuallyestimated to be 60-65 %. Diastolic Function E to E' ratio is 8-15 which is in theindeterminate zone and left ventricular diastolic parameters are consistent with Grade Idiastolic dysfunction (normal LA pressure). 2. Compared to echo 09/18/2021, no significant change. MEASUREMENTS: 2D/MM Value Range DopplerValue LVIDd 2D 4.06 cm [ 3.50 - 5.70 ] AV Peak Vel1.36 m/s LVIDs 2D 2.55 cm [ 3.10 - 4.60 ] AV Peak PG7.40 mmHg IVSd 2D 0.82 cm [ 0.60 - 1.20 ] LVOT PeakVel 1.04 m/s LVPWd 2D 0.80 cm [ 0.60 - 1.10 ] LVOT Peak PG4.33 mmHg LV Thickness Ratio 1.02 LVOT Diam2.00 cm LV Mass 2D 99.53 g DEEPTHI Vmax2.40 cm2 LV Mass Index 2D 43.85 g/m2 MV E PeakVel 1.06 m/s RWT 0.39 MV A PeakVel 1.22 m/s EDV Mod BP 58.70 ml [ 46.00 - 106.00 ] MV E/A0.90 ratio LV EDV Index 25.86 ml/m2 MV DecelTime 357.00 msec ESV Mod BP 14.30 ml [ 14.00 - 42.00 ] Med E` Vel0.08 m/s EF Mod BP 76 % [ 54 - 74 ] Lat E` Vel0.07 m/s Visually Estimated EF 60-65 % Average E/E`1413.33 LA Dimension 2D 4.30 cm [ 1.90 - 4.00 ] TV Peak Vel0.79 m/s LA Length 2C 5.52 cm TV Peak PG2.50 mmHg LA Length 4C 5.87 cm RV S`15.90 cm/sec LA Volume BP 81.40 ml TR Peak Vel2.72 m/s LA Volume Index 35.86 ml/m2 [ 16.00 - 34.00 ] TR Peak PG29.6 mmHg AoR Diam 2D 3.20 cm [ 2.00 - 3.70 ] RA Pressure3.00 mmHg Ao Root Index 1.41 cm/m2 [ 1.00 - 2.00 ] RVSP32.60 mmHg Asc Ao Diam 2D 3.50 cm PV Peak Vel0.95 m/s Asc Ao Index 1.54 cm/m2 PV Peak PG3.61 mmHg - ATTESTATION: I have reviewed and interpreted the pertinent images and measurements ofthis study. I attest to the conclusions in the final report that is provided above. DISCLAIMER: The study images and the final report will be retained in the patientchart by the [facility] for the legally required time period. This chart constitutesthe legal record of any testing performed. Electronically Signed By: Elida Vargas MD 02/10/2025 4:34:55 PM CDT us Elida Vargas MD CV ECHO PROCEDURES Final R esult * ECG 12 lead (01/06/2025 10:51 AM CDT) us Elida Vargas MD ECG ORDERABLES Final Resu lt * Thyroid Function [place] (12/31/2024 8:20 AM CDT) Pathologist [facility] TSH 3.840 0.450 - 4.500 uIU/mL [facility] - 01 Comment: No apparent thyroid disorder. Additional testing not indicated. In rare instances, Secondary Hypothyroidism as well as Subclinical Hypothyroidism have been reported in some patients with normal TSH values. Blood 12/31/2024 8:20 AM CDT 12/31/2024 Narrative [facility] - 01/01/2025 4:11 PM CDT Performed at: - [address] [id number] [employer] Homes Repairer: Aba Ochoa PhD, Phone: [phone] us Elida Vargas MD LAB BLOOD ORDERABLES Final Result [facility] * (ABNORMAL) CBC with auto differential (12/31/2024 8:20 AM CDT) Pathologist [facility] WBC 5.3 3.4 - 10.8 x10E3/uL [facility] - 01 RBC 4.53 3.77 - 5.28 x10E6/uL [facility] - 01 Hgb 14.5 11.1 - 15.9 g/dL [facility] - 01 Hct 45.0 34.0 - 46.6 % [facility] - 01 MCV 99(H) 79 - 97 fL [facility] - 01 MCH 32.0 26.6 - 33.0 pg [facility] - 01 MCHC 32.2 31.5 - 35.7 g/dL [facility] - 01 Rdw 13.0 11.7 - 15.4 % [facility] - 01 Platelets 222 150 - 450 x10E3/uL [facility] - 01 Neutrophils pct 55 Not Estab. % [facility] - 01 Lymphs pct 32 Not Estab. % [facility] - 01 Monocytes pct 9 Not Estab. % [facility] - 01 Eosinophils pct 3 Not Estab. % [facility] - 01 Basophil pct 1 Not Estab. % [facility] - 01 Neutrophil abs 2.9 1.4 - 7.0 x10E3/uL [facility] - 01 Lymphs (Absolute) 1.7 0.7 - 3.1 x10E3/uL [facility] - 01 Monocyte abs 0.5 0.1 - 0.9 x10E3/uL [facility] - 01 Eosinophils, abs 0.2 0.0 - 0.4 x10E3/uL [facility] - 01 Basophils, abs 0.1 0.0 - 0.2 x10E3/uL [facility] - 01 Immature Granulocytes 0 Not Estab. % [facility] - 01 Immature Grans (Abs) 0.0 0.0 - 0.1 x10E3/uL [facility] - 01 Blood 12/31/2024 8:20 AM CDT 12/31/2024 Narrative [facility] - 01/01/2025 7:37 AM CDT Performed at: [address] [place] [id number] [employer] Repairer: Aba Ochoa PhD, Phone: [phone] Elida Vargas MD LAB BLOOD ORDERABLES Final Result Performing Organization Address [facility] de Phone Number [facility] * Magnesium (12/31/2024 8:20 AM CDT) [facility] Magnesium 2.1 1.6 - 2.3 mg/dL [facility] - 01 Blood 12/31/2024 8:20 AM CDT 12/31/2024 Narrative [facility] - 01/01/2025 4:11 PM CDT Performed at: [address] [place] [id number] [employer] Rep[employer]r: Aba Ochoa PhD, Phone: [phone] Elida Vargas MD LAB BLOOD ORDERABLES Final Result Performing Organization Address [facility] de Phone Number [facility] * Lipid panel (12/31/2024 8:20 AM CDT) Cholesterol 129 100 - 199 mg/dL [facility] - 01 Triglycerides 105 0 - 149 mg/dL [facility] - 01 HDL Cholesterol 54 >39 mg/dL [facility] - 01 VLDL 19 5 - 40 mg/dL [facility] - 01 LDL, calculated 56 0 - 99 mg/dL [facility] - 01 Blood 12/31/2024 8:20 AM CDT 12/31/2024 Narrative [facility] - 01/01/2025 4:11 PM CDT Performed at: 01 - [address] [id number] [employer] Rep[employer]r: Aba Ochoa PhD, Phone: [phone] us Elida Vargas MD LAB BLOOD ORDERABLES Final Result [facility] - 01 * (ABNORMAL) Comprehensive metabolic panel (12/31/2024 8:20 AM CDT) Glucose 104(H) 70 - 99 mg/dL [facility] - 01 BUN 15 8 - 27 mg/dL [facility] - 01 Creatinine, Serum 0.77 0.57 - 1.00 mg/dL [facility] - 01 eGFR 85 >59 mL/min/1.7 3 [facility] - 01 BUN/creat ratio 19 12 - 28 [facility] - 01 Sodium 142 134 - 144 mmol/L [facility] - 01 Potassium, sr 4.9 3.5 - 5.2 mmol/L [facility] - 01 Chloride 105 96 - 106 mmol/L [facility] - 01 CO2 23 20 - 29 mmol/L [facility] - 01 Calcium 8.9 8.7 - 10.3 mg/dL [facility] - 01 Protein, sr 6.2 6.0 - 8.5 g/dL [facility] - 01 Albumin 4.0 3.9 - 4.9 g/dL [facility] - 01 Globulin, Total 2.2 1.5 - 4.5 g/dL [facility] - 01 Bilirubin, Total 0.6 0.0 - 1.2 mg/dL [facility] - 01 Alk phos 77 44 - 121 IU/L [facility] - 01 AST 23 0 - 40 IU/L [facility] - 01 ALT 21 0 - 32 IU/L [facility] - 01 Blood 12/31/2024 8:20 AM CDT 12/31/2024 Narrative [facility] - 01/01/2025 4:11 PM CDT Performed at: [facility] [address] [id number] [employer]r: Aba Ochoa PhD, Phone: [phone] us Elida Vargas MD LAB BLOOD ORDERABLES Final Result [facility] - 01 from Last 3 Months Insurance MEDICARE RA[facility]ROAD [facility] Care Teams Third Helper Relationship Specialty Start Date End Date Dorita Zhong MD [address] [facility] [address] [place], [place] [address] PCP - General Family Medicine 01/06/25
--- OUTSIDE RECORDS SUMMARY | 2025-03-13 10:42 | XMS_ITS | Clinical Summary ---
Author Organization [facility] Address [facility] [place] [address] Care Team Providers Care Academic Support Specialist Name Role Phone Dorita Cooper MD Primary Care Provider + Allergies No known active allergies Medications clopidogrel (PLAVIX) 75 MG tablet Take 1 tablet (75 mg total) by mouth daily. 03/19/20 24 Active Cholecalciferol (VITAMIN D3) 50 MCG (1999) Cap Take 50 mcg by mouth daily. Active aspirin EC (ECOTRIN) 81 MG tablet Take 1 tablet (81 mg total) by mouth daily. Active icosapent ethyl (VASCEPA) 1 G capsule Take 2 capsules (2 g total) by mouth 2 (two) times daily. Take with food. 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 90 tablet 3 07/09/20 24 025 Active lisinopril (PRINIVIL) 20 MG tabletIndications: Essential hypertension Take 1 tablet (20 mg total) by mouth daily. 90 tablet 3 07/09/20 24 025 Active metoprolol succinate ER (TOPROL-XL) 50 MG 24 hr tabletIndications: Essential hypertension Take 1 tablet (50 mg total) by mouth daily. 90 tablet 3 07/09/20 24 025 Active rosuvastatin (CRESTOR) 20 MG tabletIndications: Mixed hyperlipidemia Take 1 tablet (20 mg total) by mouth nightly at bedtime. 90 tablet 3 07/09/20 24 025 Active nystatin (MYCOSTATIN) creamIndications:I ntertrigo Apply topically as needed for Dry skin (rash and itching bid prn). 60 g 3 07/09/20 24 Active Additional Information Patient not taking.Reported on 12/15/2024 triamcinolone (KENALOG) 0.1 % cream as needed. Active nitroglycerin (NITROSTAT) 0.4 MG SL tabletIndications: Coronary artery disease involving [place] coronary artery of [place] heart without angina pectoris Place 1 tablet (0.4 mg total) under the tongue every 5 (five) minutes as needed for Chest Pain. 30 tablet 10/21/19 25 Active Calcium Carbonate-Vit D-Min (CALCIUM 1200 OR) Take 1 tablet by mouth daily. Active Active Problems Problem Noted Date Diagnosed Date Osteopenia 07/16/2024 Overview (07/16/2024): 07/2024 Prediabetes 07/14/2024 Essential hypertension 07/09/2024 Overview (07/09/2024): Patient takes lisinopril and metoprolol. Assessment & Plan (07/09/2024 11:17 AM ACCOUNTS PAYABLE ANALYST): Chronic and controlled. Continue lisinopril, metoprolol. CMP ordered. Mixed hyperlipidemia 07/09/2024 Overview (07/09/2024): Takes rosuvastatin 20 mg nightly. Assessment & Plan (07/09/2024 11:17 AM ACCOUNTS PAYABLE ANALYST): Chronic. Ordered lipid panel and CMP to evaluate level of control. Chronic gout 07/09/2024 Overview (07/09/2024): Takes allopurinol 100 mg daily. Affected left great toe. Last flare a couple years ago. Assessment & Plan (07/09/2024 11:17 AM ACCOUNTS PAYABLE ANALYST): Chronic. Suspect controlled since she has not had breakthrough symptoms. Continue allopurinol 100 mg daily and ordered uric acid level. Morbid obesity 05/31/2023 Assessment & Plan (07/09/2024 11:17 AM ACCOUNTS PAYABLE ANALYST): Encourage lifestyle changes. Coronary artery disease invo lving [place] coronary artery of [place] heart without angina pectoris 05/31/2023 Overview (07/09/2024): s/p NSTEMI (12/18/16) with chronic total occlusion of right coronary artery supplied by collaterals from the left. Follows with cardiology every 6 months. Taking plavix and Vascepa. Vascepa is too pricy. Assessment & Plan (07/09/2024 11:18 AM ACCOUNTS PAYABLE ANALYST): Chronic and stable. Follows cardiology. Vitamin D deficiency 05/27/2023 Keratosis pilaris 01/10/2023 Abnormal finding on mammography 10/15/2022 Overview (07/09/2024): Needs annual screening now. Found cyst but reports benign findings. Diastolic dysfunction 12/26/2016 Overview (07/09/2024): ECHO 09/18/21: LV chamber size is normal.LV wall thickness is normal,LV systolic function is low normal. LVEF is 50-55%, normal left atrial pressure with grade I diastolic dysfunction, left atrium chamber is mildly dilated,there is mild thickening of the mitral valve anterior leaflet,there is trace mitral regurgitation,there is mild tricuspid regurgitation,there is trivial pulmonic regurgitation. Gastroesophageal reflux disease 12/26/2016 Overview (07/09/2024): Intermittent. Avoids triggers. Obstructive sleep apnea syndrome 12/26/2016 Overview (07/09/2024): Uses CPAP Encounters Date Type Department Care Team Description 12/21/2024 Scan [employer] INFO SRVCS Scanned, [facility] Lab (SCAN) 12/21/2024 Telephone [facility] [address] [place] [address] Dorita Cooper MD Record Request 12/21/2024 Telephone [facility] [address] [place] [address] Dorita Cooper MD Results (Screening Mammogram results) 12/21/2024 Results Follow-Up [place] [address] [place] [address] Yolanda Rico NP URINALYSIS WI REFLEX TO CULTURE, URINALYSIS MICRO ONLY, CULTURE URINE 12/16/2024 Orders Only [place] [address] [place], [place] [address] Dorita Cooper MD 12/15/2024 11:30 AM CDT Office Visit [address] [place] [address] Dorita Cooper MD Follow Up (She is having urgency yet. She just gotten over an UTI. Urine spec sent to [facility]/spoke to Raul test code [id number]) 12/15/2024 Scan [facility] INFO [facility] Scanned, [facility] 12/15/2024 Travel from Last 3 Months Social History Tobacco Use Types Packs/Day Years Used Date Smoking Tobacco: Never Passive Smoke Exposure: Never Smokeless Tobacco: Never Tobacco Cessation:Counseling Given: No Alcohol Use Standard Drinks/Week Comments Never 0 [...] Orientation Straight 12/02/2024 2: 33 PM CDT Last Filed Vital Signs Vital Sign Reading Time Taken Comments Blood Pressure 118/82 12/15/2024 11:47 AM CDT Pulse 67 12/15/2024 11:28 AM CDT Temperature 35.9 C (96.6 F) 12/15/2024 11:28 AM CDT Respiratory Rate 16 12/02/2024 2:36 PM CDT Oxygen Saturation 97% 12/15/2024 11:28 AM CDT Inhaled Oxygen Concentration - - Weight 119.7 kg (264 lb) 12/15/2024 11:28 AM CDT Height 160 cm (5' 3) 12/15/2024 11:28 AM CDT Body Mass Index 46.77 12/15/2024 11:28 AM CDT Plan of Treatment Upcoming Encounters Date Type Department Care Team (Late st Contact Info) Description 07/09/2025 9:30 AM ACCOUNTS PAYABLE ANALYST Office Visit [facility] [address] [place] [address] Dorita Cooper MD [address] [place] [address] 08/10/2025 10:30 AM ACCOUNTS PAYABLE ANALYST Office Visit [facility] [address] [place] [address] Dorita Cooper MD [address] [place] [address], [place] [address] Health Maintenance Due Date Last Done Comments Hepatitis C 1976 DTaP, Tdap and Td Vaccines (1 - Tdap) 1977 Pneumococcal Vaccine: 50+ Years (1 of 2 - PCV) 1977 Zoster Vaccines (1 of 2) 2008 RSV Immunization or 60+ Years (1 - Risk 60-74 years 1-dose series) 2018 Annual Medicare Wellness Visit 2023 COVID-19 Vaccine ( season) 2024 06/11/2022, 06/09/2021, 10/29/2020, Additional history exists Mammogram Screening 12/18/2026 12/18/2024 Colorectal Cancer Screening Colonoscopy (10 Years) 11/26/2032 11/26/2022 Dexa Scan (General) Completed 07/16/2024 PHQ-2 (Physician [place]) Completed 12/15/2024 Meningococcal B Vaccine Aged Out No l onger eligible based on patient's age to complete this topic Meningococcal Vaccine Aged Out No ryan maddy eligible based on patient's age to complete this topic RSV Immunizations Under 20 Months Aged Out No longer eligible based on patient's age to complete this topic Procedures Procedure Name Priority Date/Time Associated Diagnosis Comments OUTSIDE LAB (SCAN ORDER) 12/21/2024 MG SCREENING W DANNY OC DIGI Routine 12/18/2024 12:00 AM CDT Encounter for mammogram to establish baseline mammogram CULTURE URINE 12/16/2024 12:30 PM CDT URINALYSIS MICRO ONLY 12/16/2024 12:30 PM CDT URINALYSIS WI REFLEX TO CULTURE 12/16/2024 12:30 PM CDT BONE DENSITY/DEXA Routine 07/16/2024 9:1 2 AM ACCOUNTS PAYABLE ANALYST Estrogen deficiency Post-menopausal COLONOSCOPY GENERIC (SCAN ORDER) 11/26/2022 from Last 3 Months or Most Recently Relevant to Health Maintenance Results * OUTSIDE LAB (SCAN ORDER) (12/21/2024) 12/21/2024 us [facility] Scanned SCANNING Final Resu lt * MG SCREENING W DANNY OC DIGI (12/18/2024 12:00 AM CDT) Anatomical Region Laterality Modality Breast Bilateral Mammography 12/18/2024 us Dorita Cooper MD MAMMO Final Re sult * URINALYSIS WI REFLEX TO CULTURE (12/16/2024 12:30 PM CDT) SPECIFIC GRAVITY (U) 1.009 1.005 - 1.03 [facility] 1 PH (U) 7.0 5.0 - 7.5 [facility] 1 COLOR (U) Yellow Yellow [facility] 1 APPEARANCE SEMEN Clear Clear [facility] 1 LEUK ESTERASE (U) Negative Negative [facility] 1 PROTEIN (U) Negative Negative/T [facility] 1 GLUCOSE (U) Negative Negative [facility] 1 KETONES MG/DL (U) Negative Negative [facility] 1 BLOOD (U) Negative Negative [facility] 1 BILIRUBIN (U) Negative Negative [facility] 1 UROBILINOGEN 0.2 0.2 - 1.0 mg/dL [facility] 1 NITRITES Negative Negative [facility] 1 MICROSCOPIC DESCRIPTION Comment [facility] 1 Comment:Microscopic follows if indicated. MICROSCOPIC DESCRIPTION See below: [facility] 1 Comment:Microscopic was anaya cated and was performed. REFLEX ADDED Comment [facility] 1 Comment:This specimen has re flexed to a Urine Culture. 12/16/2024 12:3 0 PM CDT 12/16/2024 Narrative [facility] - 12/18/2024 8:07 AM CDT Performed at: [address] [place] [id number] Finishing Department Supervisor: Aba Ochoa PhD, Phone: [phone] us Dorita Cooper MD URINE ORDERABLES Final R esult Performing Organization Address [facility] [place] [address] [facility] 1 * CULTURE URINE (12/16/2024 12:30 PM CDT) CULTURE URINE Culture shows less than 10,000 colony forming units of bacteria per milliliter of urine. This colony count is not generally considered to be clinically significant. [facility] 1 12/16/2024 12:3 0 PM CDT 12/16/2024 Narrative [facility] - 12/18/2024 8:07 AM CDT Performed at: [address] [id number] Finishing Department Supervisor: Aba Ochoa PhD, Phone: [phone] us Dorita Cooper MD MICROBIOLOGY - GENERAL O RDERABLES Final Result Performing Organization Address [facility] [place] [address] [facility] 1 * (ABNORMAL) URINALYSIS MICRO ONLY (12/16/2024 12:30 PM CDT) WBC/HPF None seen 0 - 5 /hpf [facility] 1 RBC/HPF None seen 0 - 2 /hpf [facility] 1 EPI/HPF 0-10 0 - 10 /hpf [facility] 1 URINE CASTS 1 QTY None seen None seen /lpf [facility] 1 BACTERIA (U) Moderate(A ) None seen/ [facility] 1 12/16/2024 12:3 0 PM CDT 12/16/2024 Narrative [facility] - 12/18/2024 8:07 AM CDT Performed at: 01 - [facility] [address] [id number] Finishing Department Supervisor: Aba Ochoa PhD, Phone: [phone] us Dorita Cooper MD URINE ORDERABLES Final R esult [facility] [address] [place] [address] [facility] 1 * BONE DENSITY/DEXA (07/16/2024 9:12 AM ACCOUNTS PAYABLE ANALYST) Anatomical Region Laterality Modality Bone Mammography 07/16/2024 9:14 AM ACCOUNTS PAYABLE ANALYST Impressions 07/16/2024 9:15 AM ACCOUNTS PAYABLE ANALYST IMPRESSION: WHO Classification: Osteopenia RECOMMENDATIONS: All patients should ensure an adequate intake of dietary calcium and vitamin D. The NOF recommend adults under the age of 50 need 1000 mg of calcium and 400-800 IU of vitamin D daily. Effective therapy for the prevention and treatment of osteoporosis include bisphosphonates. Follow-up: People with diagnosed cases of osteoporosis or at high risk for fracture should have regular bone mineral density test. For patients eligible for Medicare, routine testing is allowed once every 2 years. Testing frequency can be increased to one year for patients who have rapidly progressing disease, those who are receiving or discontinuing medical therapy to restore bone mass, or have additional risk factors. Referred By: DORITA COOPER Interpreted By: Jordan Joseph MD, 07/16/2024 9:14 AM Narrative 07/16/2024 9:15 AM ACCOUNTS PAYABLE ANALYST [facility] [place] [address] EXAMINATION: BONE DENSITY/DEXA INDICATIONS: Estrogen deficiency, postmenopausal COMPARISON: None TECHNIQUE: DEXA bone mineral density evaluation was performed in the AP projection over the lumbar spine and both hips utilizing standard imaging techniques. ASSESSMENT: The BMD measured at the AP spine L1-L4 is 1.175 g/cm? with a T-score of 1.2. The BMD measured at the left femoral neck is 0.652 g/cm? with a T-score of -1.8. The BMD measured at the left hip is 0.926 g/cm? with a T-score of -0.1. The BMD measured at the right femoral neck is 0.644 g/cm? with a T-score of - 1.8. The BMD measured at the right hip is 0.912 g/cm? with a T-score of -0.2. FRAX 10-year fracture risk: Major Osteoporotic Fracture: 8.6% Hip Fracture: 1.1% Procedure Note Jordan Joseph MD - 07/16/2024 [facility] [place] [address] EXAMINATION: BONE DENSITY/DEXA INDICATIONS: Estrogen deficiency, postmenopausal COMPARISON: None TECHNIQUE: DEXA bone mineral density evaluation was performed in the APprojection over the lumbar spine and both hips utilizing standard imagingtechniques. ASSESSMENT: The BMD measured at the AP spine L1-L4 is 1.175 g/cm? with a T-score of1.2. The BMD measured at the left femoral neck is 0.652 g/cm? with a T-score of-1.8. The BMD measured at the left hip is 0.926 g/cm? with a T-score of -0.1. The BMD measured at the right femoral neck is 0.644 g/cm? with a T-scoreof -1.8. The BMD measured at the right hip is 0.912 g/cm? with a T-score of -0.2. FRAX 10-year fracture risk: Major Osteoporotic Fracture: 8.6% Hip Fracture: 1.1% IMPRESSION: WHO Classification: Osteopenia RECOMMENDATIONS: All patients should ensure an adequate intake of dietary calcium andvitamin D. The NOF recommend adults under the age of 50 need 1000 mg ofcalcium and 400-800 IU of vitamin D daily. Effective therapy for theprevention and treatment of osteoporosis include bisphosphonates. Follow-up: People with diagnosed cases of osteoporosis or at high risk for fractureshould have regular bone mineral density test. For patients eligible forMedicare, routine testing is allowed once every 2 years. Testing frequencycan be increased to one year for patients who have rapidly progressingdisease, those who are receiving or discontinuing medical therapy torestore bone mass, or have additional risk factors. Referred By: DORITA COOPER Interpreted By: Jordan Joseph MD, 07/16/2024 9:14 AM us Dorita Cooper MD DEXA Final Re sult * COLONOSCOPY GENERIC (SCAN ORDER) (11/26/2022) 11/26/2022 us [facility] Scanned SCANNING Final Resu lt from Last 3 Months or Most Recently Relevant to Health Maintenance Insurance [place]ICARE [place], [place] [address] Care Teams Academic Support Specialist Relationship Specialty Start Date End Date Dorita Cooper MD [address] [place] [id number] PCP - General FAMILY PRACTICE 07/09/24
--- NOTE | 2025-03-13 10:54 | ED_ITS ---
HPI - Skin/Abscess/Foreign Bdy General Chief complaint: Skin/Abscess/Foreign Body Stated complaint: c/o facial soreness/numbness Source: patient Mode of arrival: ambulatory Limitations: no limitations History of Present Illness HPI narrative: 64-year-old female presented for complaint of left-sided facial pain. Onset last night to the TMJ area. Endorses swelling and tingling into the jaw and lips. Symptoms are worse when biting and chewing for the last 2 days. Pain is described as 'a zing.' Reports a history of shingles and has also had canker sores. says she does not want it to get worse. Denies rash or redness to the face, decreased hearing, headache, or sick symptoms. Related Data Home Medications ?Medication ?Instructions ?Recorded ?Confirmed ?Last Taken ?Type aspirin 81 mg tablet,delayed 81 mg PO DAILY 10/06/19 03/13/25 Unknown History release (Aspir-) metoprolol succinate 50 mg 50 mg PO DAILY 10/06/19 03/13/25 11/26/22 08:30 History tablet,extended release 24 hr ticagrelor 60 mg tablet (Brilinta) 60 mg PO Q12H 10/06/19 03/13/25 Unknown History lisinopril 20 mg tablet 20 mg PO DAILY 11/16/22 03/13/25 Unknown History nystatin 100,000 unit/gram topical 1 applic topical BID PRN Rash 11/16/22 11/16/22 Unknown History cream omega 3-rsi-fkx-fish oil 1,200 mg 1,200 cap PO BID 11/16/22 03/13/25 Unknown History (144 mg-216 mg) capsule (Fish Oil) rosuvastatin 20 mg tablet 20 mg PO DAILY 11/16/22 03/13/25 Unknown History triamcinolone acetonide 0.1 % 1 applic topical BID PRN Rash 11/16/22 11/16/22 Unknown History topical cream Allergies Allergy/AdvReac Type Severity Reaction Status Date / Time No Known Allergies Allergy Verified 03/13/25 10:46 Review of Systems Review of Systems: CONSTITUTIONAL: Denies body aches, fever, chills, or sweats. EYES: Denies visual changes, redness, or discharge. ENT: reports left facial pain Denies rhinorrhea, congestion CARDIOVASCULAR: Denies chest pain, palpitations, or edema. RESPIRATORY: Denies cough or dyspnea. GASTROINTESTINAL: Denies abdominal pain, nausea, vomiting, or diarrhea. SKIN: denies rash MUSCULOSKELETAL: Denies back pain, joint pain, or myalgia. NEUROLOGIC: Denies headache, numbness, tingling, or weakness. All systems reviewed & are unremarkable except as noted in HPI and below [facility] Past Medical History Medical History (Updated 03/13/25 @ 11:08 by Shonna Brush APRN) Positive colorectal cancer screening using Cologuard test Benign essential HTN Obesity DORY (obstructive sleep apnea) CPAP CHF (congestive heart failure) Mixed hyperlipidemia GERD (gastroesophageal reflux disease) Hx of myocardial infarction CAD (coronary artery disease) Family History Family History Mother Hypertension Family history of cardiovascular disease Cerebrovascular accident Father Malignant neoplasm of prostate Social History Social History Social History: Smoking status: Never smoker Second hand tobacco smoke exposure: No Alcohol intake: never Substance use: never Substance use type: does not use Living arrangements: with family Occupation/Education: retired Gender identity (if verbalized by the patient): Female Spiritual care concerns: No Comments At time of signature, I have reviewed and agree with nursing past medical, surgical, social and family history unless otherwise noted. Please see nursing chart for further information. There is no relevant family history pertinent to the presenting complaint Exam Narrative: GENERAL: Well-appearing HEAD: Normocephalic, atraumatic. Left TMJ tender with palpation, no apparent swelling or erythema. EYES: conjunctivae clear, and EOMI. ENT: Mucous membranes moist. Oropharynx without edema, erythema or lesions. No gum swelling or tenderness. No apparent dental trauma. NECK: Supple. No lymphadenopathy CHEST: Clear to auscultation. HEART: Regular rate and rhythm. SKIN: Warm, dry. No rash or lesions noted. NEURO: Alert and oriented x3. Course Course Emergency Course: Patient is aware of diagnosis, understands and agrees to treatment plan. Anticipatory guidance given. Patient agrees to follow-up as directed and is aware of reasons to seek care at the emergency department. Portions of this record may have been created with voice recognition software Level of Care: Express Care Visit Vital Signs Vital signs: Reviewed MDM - Skin/Abscess/Foreign Bdy MDM Narrative Medical decision making narrative: Discussed physical exam findings and possible etiologies of pt's symptoms including but not limited to shingles, sialoadenitis, TMJ disorder. Shared decision making pt is agreeable to start valacyclovir. Advised supportive measu res and signs/symptoms to go to the ER. Pt is appropriate for outpt treatment and f/u. Differential Diagnosis Differential diagnosis: Likely abscess of skin or subcutaneous tissue, viral exanthem, dermatophytosis, urticaria, herpes zoster, cellulitis, eczema, insect bites, impetigo and contact dermatitis Discharge Plan Discharge Clinical Impression: Acute facial pain Patient Disposition: Home Condition: Stable Instructions: Antibiotic Form, Shingles (ED) Additional Instructions: Take medication as directed If you notice blisters, keep them covered until they are fully crusted over - you are contagious until they are dried Avoid contact with women or people who have not had chickenpox vaccination. Tylenol 1000mg every 8 hours as needed Follow up with your primary care provider next week. Go to the ER for worsening symptoms or concerns. Patient Language: Mauritian Prescriptions: New valacyclovir 1 gram tablet 1,000 mg PO Q8H 7 Days Qty: 21 0RF No Action Brilinta 60 mg tablet 60 mg PO Q12H aspirin [Aspir-81] 81 mg tablet,delayed release (DR/EC) 81 mg PO DAILY metoprolol succinate 50 mg tablet extended release 24 hr 50 mg PO DAILY lisinopril 20 mg tablet 20 mg PO DAILY triamcinolone acetonide 0.1 % cream 1 applic TOPICAL BID PRN (Reason: Rash) nystatin 100,000 unit/gram cream 1 applic TOPICAL BID PRN (Reason: Rash) rosuvastatin 20 mg tablet 20 mg PO DAILY omega 3-klw-pxg-fish oil [Fish Oil] 1,200 (144-216) mg Capsule 1,200 cap PO BID allopurinol 100 mg tablet 100 mg PO DAILY Qty: 90 1RF Follow-up/Referrals: Trevin,Dorita Wang MD [Primary Care Provider] - Time of Disposition: 11:09
[2025-03-13 10:56] VITALS: BP 129/60; PULSE 61; RESP 16; TEMP 36; O2SAT 99
== END 2025-03-13 11:10 | disposition home or self-care (01) ==
PROVIDERS: Emergency Provider Nurse Practitioner Family; PCP Student in an Organized Health Care Education/Training Program
DX: G50.1 Atypical facial pain (principal); I10 Essential (primary) hypertension; I50.9 Heart failure, unspecified; I25.10 Atherosclerotic heart disease of native coronary artery without angina pectoris; I25.2 Old myocardial infarction; E78.2 Mixed hyperlipidemia; K21.9 Gastro-esophageal reflux disease without esophagitis; G47.33 Obstructive sleep apnea (adult) (pediatric); E66.9 Obesity, unspecified; Z68.42 Body mass index [BMI] 45.0-49.9, adult; Z79.82 Long term (current) use of aspirin
CPT/HCPCS: 99213; G0463